=== PATIENT | male | born 1980 | race Caucasian/White ===

== ENCOUNTER 2023-05-21 15:43 | Outpatient (CLI) | payer OTHER, SELFPAY ==
--- NOTE | ~2023-05-21 | US_ITS ---
Limited Abdominal Sonogram: Real-time sonographic imaging of the right upper quadrant was performed. Clinical History: Abnormal liver enzymes Findings: The liver appears normal with no evidence of mass lesion or bile duct dilatation. Main por john vein demonstrates normal direction of flow. The gallbladder is well distended, and demonstrates 5 mm gallbladder wall polyp. The common bile duct measures 2 mm. The visualized pancreas, aorta, and IVC are unremarkable. Impression: 5 mm gallbladder wall polyp. Reviewed, dictated and finalized at location M. Impression: 5 mm gallbladder wall polyp.
== END 2023-05-21 15:44 | disposition home or self-care (01) ==
PROVIDERS: PCP Family Medicine; Visit Provider Physician Assistant
DX: R17 Unspecified jaundice (principal); R79.89 Other specified abnormal findings of blood chemistry; R74.8 Abnormal levels of other serum enzymes; K82.4 Cholesterolosis of gallbladder
CPT/HCPCS: 76705